=== PATIENT | male | born 1995 | race Caucasian/White ===

== ENCOUNTER 2022-12-06 15:49 | Emergency (ER) | payer SELFPAY ==
[~2022-12-06] VITALS: Ht 170.2 cm; Wt 77.0 kg
[2022-12-06 15:51] VITALS: BP 128/82; PULSE 83; RESP 14; TEMP 98.1; O2SAT 100
[2022-12-06] MEDS ORDERED: TETANUS, DIPHTHERIA, PERTUSSIS VAC/PF 0.5ML (>10YR OLD) IM ONE (16:45)
[2022-12-06] MEDS ORDERED: LIDOCAINE HCL/PF 1% 10 MG/ML 5ML VIAL INFIL ONE (16:45)
[2022-12-06] MEDS ORDERED: BACITRACIN ZINC OINT UDPKT TOP ONE (16:45)
[2022-12-06] MEDS ORDERED: BO1 TP (19:06)
== END 2022-12-06 19:30 | disposition home or self-care (01) ==
LOC: ER 16:19
DX: S81.011A Laceration without foreign body, right knee, initial encounter (principal); W18.30XA Fall on same level, unspecified, initial encounter; Y93.89 Activity, other specified; Y92.89 Other specified places as the place of occurrence of the external cause; Y99.8 Other external cause status
CPT/HCPCS: 73560; 90715; 12002; 90471; 99283; J3490; Z7610 ×3